=== PATIENT | female | born 1930 | race Caucasian/White ===

== ENCOUNTER 2016-12-11 17:10 | Emergency (ER) | payer OTHER, MEDICAID ==
[~2016-12-11] VITALS: Ht 160 cm; Wt 99.8 kg
[~2016-12-11 17:10] MED LIST: ALBU2.5V7 INH; ALLO300T47 PO; CALC-939 PO; CYM30 PO; GABA-531 PO; IBUP-1480 PO; INSU100V11 SQ; INSU200I SQ; LEVO88TA5 PO; LIP40 PO; MONT10TA22 PO; NYSSUS PO; OMEG-82 PO; OXYB10TA4 PO; POLY17PO4 PO; PRO40 PO; TEMA15CA51 PO; VIT1TABL67 PO; [UNRECOGNIZED DRUG - CODE] PO
[2016-12-11 17:18] VITALS: BP_SYST 126
[2016-12-11] MEDS ORDERED: ASPIRIN 81 MG TAB.CHEW PO ONE (17:45)
[2016-12-11] MEDS ORDERED: CLOPIDOGREL BISULFATE 75 MG TABLET PO ONE (17:45)
[2016-12-11 18:24] LABS: BASOPHILS # (AUTO) 0.1 K/uL (0.0-0.2); EOSINOPHILS # (AUTO) 0.2 K/uL (0.0-0.4); HEMATOCRIT 40.8 % (36-48); HEMOGLOBIN 13.5 g/dL (12.0-16.0); LYMPHOCYTES # (AUTO) 2.5 K/uL (1.0-5.5); LYMPHOCYTES % (AUTO) 32.8 % (20.5-51.5); MEAN CORPUSCULAR HEMOGLOBIN 29 pg (27-31); MEAN CORPUSCULAR HGB CONC 33 % (32-36); MEAN CORPUSCULAR VOLUME 88 fL (79.0-98.0); MONOCYTES # (AUTO) 0.5 K/uL (0.0-1.0); MONOCYTES % (AUTO) 6.4 % (1.7-9.3); NEUTROPHILS # (AUTO) 4.3 K/uL (1.8-7.7); NEUTROPHILS % (AUTO) 56.8 % (40.0-70.0); PLATELET COUNT (AUTO) 224 K/uL (130-430); RED BLOOD CELL COUNT(AUTO) 4.64 MIL/uL (4.2-6.2); RED CELL DISTRIBUTION WIDTH 13.6 % (9.0-15.0); WHITE BLOOD COUNT (AUTO) 7.6 K/uL (4.8-10.8)
[2016-12-11 18:32] LABS: ANION GAP 5 (5-15); CHLORIDE 104 mmol/L (98-107); CREATININE 1.31 mg/dL (0.55-1.30); GLUCOSE 187 mg/dL (70-99); POTASSIUM 4.6 mmol/L (3.5-5.1); SODIUM SERUM 138 mmol/L (136-145); UREA NITROGEN, BLOOD 26 mg/dL (8-21)
[2016-12-11 18:37] LABS: ALANINE AMINOTRANSFERASE 25 U/L (12-78); ASPARTATE AMINOTRANSFERASE 30 U/L (10-37); CREATINE KINASE, TOTAL 68 U/L (26-192); TOTAL BILIRUBIN 0.3 mg/dL (0.0-1.0)
[2016-12-11] MEDS ORDERED: GABA-529 PO (19:12)
[2016-12-11] MEDS ORDERED: POLY17PO4 PO (19:12)
[2016-12-11] MEDS ORDERED: PRO40 PO (19:12)
[2016-12-11] MEDS ORDERED: SSREG SUBCUT (19:12)
[2016-12-11] MEDS ORDERED: INSU100V11 SQ (19:12)
[2016-12-11] MEDS ORDERED: LACT10SO66 GT (19:12)
[2016-12-11] MEDS ORDERED: IBUP-1480 PO (19:12)
[2016-12-11] MEDS ORDERED: ACET325T53 PO (19:12)
[2016-12-11] MEDS ORDERED: DULR10 RC (19:12)
[2016-12-11] MEDS ORDERED: CRAN450C PO (19:12)
[2016-12-11] MEDS ORDERED: VITD2000 PO (19:12)
[2016-12-11] MEDS ORDERED: MAGN400O4 PO (19:12)
[2016-12-11] MEDS ORDERED: OXYB5TAB11 PO (19:12)
[2016-12-11] MEDS ORDERED: OXYC-130 PO (19:12)
[2016-12-11] MEDS ORDERED: DOCU250C PO (19:12)
[2016-12-11] MEDS ORDERED: ALLO100T PO (19:12)
[2016-12-11] MEDS ORDERED: TEMA15CA51 PO (19:12)
[2016-12-11] MEDS ORDERED: MULT PO (19:12)
[2016-12-11] MEDS ORDERED: NA P118E RC (19:12)
[2016-12-11 20:12] LABS: BILIRUBIN,URINE NEGATIVE (NEGATIVE); BLOOD, URINE NEGATIVE (NEGATIVE); CLARITY/URINE CLEAR (CLEAR); COLOR,URINE YELLOW (YELLOW); GLUCOSE,URINE 2+ (NEGATIVE); KETONES,URINE NEGATIVE (NEGATIVE); LEUKOCYTE ESTERASE ,URINE NEGATIVE (NEGATIVE); NITRITE, URINE NEGATIVE (NEGATIVE); PH,URINE 5.5 (5.0-8.0); PROTEIN URINE NEGATIVE (NEGATIVE); UROBILINOGEN,URINE 0.2 (0.2-1.0)
[2016-12-11 21:57] VITALS: BP_SYST 118
== END 2016-12-11 21:57 | disposition home or self-care (01) ==
LOC: SED 17:10
DX: R07.89 Other chest pain (principal); I10 Essential (primary) hypertension; E11.29 Type 2 diabetes mellitus with other diabetic kidney complication; N28.9 Disorder of kidney and ureter, unspecified; I25.2 Old myocardial infarction; E78.00 Pure hypercholesterolemia, unspecified; M10.9 Gout, unspecified; Z79.4 Long term (current) use of insulin; Z88.5 Allergy status to narcotic agent; Z88.0 Allergy status to penicillin; Z88.8 Allergy status to other drugs, medicaments and biological substances; Z88.4 Allergy status to anesthetic agent; Z88.1 Allergy status to other antibiotic agents; Z91.011 Allergy to milk products
CPT/HCPCS: 36415; 71010; 80053; 81003; 82550-TC; 83880; 84484; 85025; 85379; 85610-TC; 85730-TC; 93005; 99285

== ENCOUNTER 2017-03-25 23:39 | Inpatient (IN) | payer OTHER, MEDICAID ==
[~2017-03-25] VITALS: Ht 157.5 cm; Wt 100.2 kg
[~2017-03-25 23:39] MED LIST changes: +ACET325T53 PO; +ALLO100T PO; +CRAN450C PO; +DOCU250C PO; +DULR10 RC; +GABA-529 PO; -GABA-531 PO; -INSU200I SQ; +LACT10SO66 GT; -LEVO88TA5 PO; +MAGN400O4 PO; +MULT PO; +NA P118E RC; -NYSSUS PO; -OXYB10TA4 PO; +OXYB5TAB11 PO; +OXYC-130 PO; +SSREG SUBCUT; -VIT1TABL67 PO; +VITD2000 PO; -[UNRECOGNIZED DRUG - CODE] PO
[2017-03-25 23:42] VITALS: BP_SYST 112
[2017-03-26] VITALS (11 sets, daily range): BP systolic 95–177
[2017-03-26] MEDS ORDERED: NITROGLYCERIN 0.4 MG TAB.SUBL SL ONE
[2017-03-26] MEDS ORDERED: NITROGLYCERIN 1 INCH (GM) OINT. TP ONE (00:15)
[2017-03-26] MEDS ORDERED: LEVO100T9 PO (00:35)
[2017-03-26] MEDS ORDERED: HYDR-4100 PO (00:35)
[2017-03-26] MEDS ORDERED: ALLO300T2 PO (00:35)
[2017-03-26 00:48] LABS: HEMATOCRIT 38.3 % (36-48); HEMOGLOBIN 12.6 g/dL (12.0-16.0); MEAN CORPUSCULAR HEMOGLOBIN 29 pg (27-31); MEAN CORPUSCULAR HGB CONC 33 % (32-36); MEAN CORPUSCULAR VOLUME 89 fL (79.0-98.0); RED BLOOD CELL COUNT(AUTO) 4.34 MIL/uL (4.2-6.2); RED CELL DISTRIBUTION WIDTH 13.8 % (9.0-15.0); WHITE BLOOD COUNT (AUTO) 10.7 K/uL (4.8-10.8)
[2017-03-26 00:56] LABS: ANION GAP 6 (5-15); CHLORIDE 107 mmol/L (98-107); CREATININE 1.38 mg/dL (0.55-1.30); GLUCOSE 165 mg/dL (70-99); POTASSIUM 4.7 mmol/L (3.5-5.1); SODIUM SERUM 138 mmol/L (136-145); UREA NITROGEN, BLOOD 32 mg/dL (8-21)
[2017-03-26 00:59] LABS: PROTHROMBIN TIME 10.4 SECS (9.5-12.5)
[2017-03-26 01:01] LABS: ALANINE AMINOTRANSFERASE 13 U/L (12-78); ALBUMIN 2.8 g/dL (3.4-4.8); ASPARTATE AMINOTRANSFERASE 23 U/L (10-37); TOTAL BILIRUBIN 0.3 mg/dL (0.0-1.0); TOTAL PROTEIN, SERUM 6.7 g/dL (6.4-8.3)
[2017-03-26 01:05] LABS: PLATELET COUNT (AUTO) 143 K/uL (130-430)
[2017-03-26 01:12] LABS: ATYPICAL LYMPHOCYTES % 0 % (0-0); BAND % (MANUAL) 2 % (0-6); EOSINOPHILS % (MANUAL) 8 % (0-7); LYMPHOCYTES % (MANUAL) 34 % (20-46); MONOCYTES % (MANUAL) 6 % (0-11)
[2017-03-26 01:13] LABS: BASOPHILS % (MANUAL) 0 % (0-2)
[2017-03-26] MEDS ORDERED: MORPHINE 2 MG/ML INJ. SYRINGE IVP ONE (01:45)
[2017-03-26] MEDS ORDERED: DIPHENHYDRAMINE INJ 50 MG/ML VIAL IVP ONE (01:45)
[2017-03-26 01:47] LABS: BILIRUBIN,URINE NEGATIVE (NEGATIVE); BLOOD, URINE NEGATIVE (NEGATIVE); CLARITY/URINE CLEAR (CLEAR); COLOR,URINE YELLOW (YELLOW); GLUCOSE,URINE NEGATIVE (NEGATIVE); KETONES,URINE NEGATIVE (NEGATIVE); LEUKOCYTE ESTERASE ,URINE NEGATIVE (NEGATIVE); NITRITE, URINE NEGATIVE (NEGATIVE); PH,URINE 5.5 (5.0-8.0); PROTEIN URINE NEGATIVE (NEGATIVE); UROBILINOGEN,URINE 0.2 (0.2-1.0)
[2017-03-26] MEDS ORDERED: MILK OF MAGNESIA 30 ML UDC PO PRN (03:45)
[2017-03-26] MEDS ORDERED: ACETAMINOPHEN 325 MG TABLET PO PRN (03:45)
[2017-03-26] MEDS ORDERED: NA PHOS,M-B/NA PHOS,DI-BA 118 ML (FLEET ENEMA) RC PRN (03:45)
[2017-03-26] MEDS: NITROGLYCERIN 1 INCH (GM) OINT. TP SCH ×3 (06:00→22:00)
[2017-03-26] MEDS: LEVOTHYROXINE SODIUM 0.1 MG TABLET PO SCH (06:27)
[2017-03-26] MEDS: INSULIN REGULAR, HUMAN 100 UNITS/ML, 10 ML VIAL (novoLIN R) SUBCUT PRN ×2 (06:39→11:51)
[2017-03-26] MEDS: PANTOPRAZOLE SODIUM 40 MG TAB PO SCH (09:27)
[2017-03-26] MEDS: ALLOPURINOL 300 MG TABLET (ZYLOPRIM) PO SCH (09:27)
[2017-03-26] MEDS: DOCUSATE SODIUM 250 MG CAPSULE PO SCH ×2 (09:27→20:55)
[2017-03-26] MEDS: CALCIUM CARBONATE/VITAMIN D3 1 TAB TABLET PO SCH (09:27)
[2017-03-26] MEDS: MONTELUKAST 10 MG TABLET PO SCH (09:27)
[2017-03-26] MEDS: GABAPENTIN 100 MG CAPSULE PO SCH ×3 (09:27→20:51)
[2017-03-26] MEDS: BISACODYL 10 MG/SUPPOSITORY RC SCH (09:28)
[2017-03-26] MEDS: HYDROcodone/ACETAMIN 10-325 MG TAB PO PRN (09:47)
[2017-03-26] MEDS: IBUPROFEN 800 MG TABLET PO PRN (11:48)
[2017-03-26] MEDS ORDERED: ONDANSETRON HCL 4 MG/2 ML VIAL IVP PRN ×2 (12:15→17:45)
[2017-03-26] MEDS ORDERED: DIATR MEGLU/DIATRIZ SOD 30 ML SOLUTION PO ONE (12:58)
[2017-03-26] MEDS: MORPHINE 2 MG/ML INJ. SYRINGE IVP PRN ×2 (13:22→20:31)
[2017-03-26] MEDS ORDERED: POLYMYXIN 500,000/BACIT.10,000 UNITS in NS IRR 1 L IR ONE (16:39)
[2017-03-26] MEDS ORDERED: LR 1,000 ML IV SCH (17:32)
[2017-03-26] MEDS ORDERED: MEPERIDINE HCL/PF 25 MG/ML DISP.SYRIN IVP PRN ×2 (17:45)
[2017-03-26] MEDS ORDERED: NACL 0.9% 1,000 ML IV SCH (20:15)
[2017-03-26] MEDS: OXYBUTYNIN CHLORIDE 5 MG TABLET PO SCH (20:50)
[2017-03-26] MEDS: ATORVASTATIN 20 MG TABLET PO SCH (20:53)
[2017-03-26] MEDS ORDERED: DIGOXIN 0.5 MG/2 ML AMP IVP ONE (22:30)
[2017-03-27] VITALS (17 sets, daily range): BP systolic 91–177
[2017-03-27 01:11] LABS: ANION GAP 6 (5-15); CALCIUM 8.6 mg/dL (8.4-11.0); CHLORIDE 107 mmol/L (98-107); CREATININE 1.29 mg/dL (0.55-1.30); GLUCOSE 205 mg/dL (70-99); POTASSIUM 5.1 mmol/L (3.5-5.1); SODIUM SERUM 137 mmol/L (136-145); UREA NITROGEN, BLOOD 33 mg/dL (8-21)
[2017-03-27 01:12] LABS: BASOPHILS # (AUTO) 0.1 K/uL (0.0-0.2); EOSINOPHILS # (AUTO) 0.2 K/uL (0.0-0.4); EOSINOPHILS % (AUTO) 1.9 % (0.0-4.0); HEMATOCRIT 35.6 % (36-48); HEMOGLOBIN 11.9 g/dL (12.0-16.0); LYMPHOCYTES # (AUTO) 1.7 K/uL (1.0-5.5); LYMPHOCYTES % (AUTO) 15.4 % (20.5-51.5); MEAN CORPUSCULAR HEMOGLOBIN 30 pg (27-31); MEAN CORPUSCULAR HGB CONC 34 % (32-36); MEAN CORPUSCULAR VOLUME 90 fL (79.0-98.0); MONOCYTES # (AUTO) 0.5 K/uL (0.0-1.0); MONOCYTES % (AUTO) 4.4 % (1.7-9.3); NEUTROPHILS # (AUTO) 8.3 K/uL (1.8-7.7); NEUTROPHILS % (AUTO) 77.3 % (40.0-70.0); PLATELET COUNT (AUTO) 117 K/uL (130-430); RED BLOOD CELL COUNT(AUTO) 3.97 MIL/uL (4.2-6.2); WHITE BLOOD COUNT (AUTO) 10.8 K/uL (4.8-10.8)
[2017-03-27 01:16] LABS: CREATINE KINASE, TOTAL 152 U/L (26-192)
[2017-03-27] MEDS: LEVOTHYROXINE SODIUM 0.1 MG TABLET PO SCH (06:04)
[2017-03-27] MEDS: INSULIN REGULAR, HUMAN 100 UNITS/ML, 10 ML VIAL (novoLIN R) SUBCUT PRN ×2 (06:13→21:00)
[2017-03-27] MEDS: NITROGLYCERIN 1 INCH (GM) OINT. TP SCH ×3 (06:25→21:11)
[2017-03-27] MEDS: MORPHINE 2 MG/ML INJ. SYRINGE IVP PRN ×2 (06:32→10:40)
[2017-03-27] MEDS: PANTOPRAZOLE SODIUM 40 MG TAB PO SCH (08:15)
[2017-03-27] MEDS: MONTELUKAST 10 MG TABLET PO SCH (08:15)
[2017-03-27] MEDS: ALLOPURINOL 300 MG TABLET (ZYLOPRIM) PO SCH (08:15)
[2017-03-27] MEDS: DOCUSATE SODIUM 250 MG CAPSULE PO SCH ×2 (08:15→20:47)
[2017-03-27] MEDS: GABAPENTIN 100 MG CAPSULE PO SCH ×3 (08:16→20:48)
[2017-03-27] MEDS: CALCIUM CARBONATE/VITAMIN D3 1 TAB TABLET PO SCH (08:31)
[2017-03-27] MEDS: BISACODYL 10 MG/SUPPOSITORY RC SCH (10:28)
[2017-03-27] MEDS: POLYETHYLENE GLYCOL 3350, 17 GM/ POWD.PACK PO PRN (14:09)
[2017-03-27] MEDS ORDERED: NOREPINEPHRINE 4 MG/4 ML VIAL IV ONE (16:45)
[2017-03-27] MEDS: HYDROcodone/ACETAMIN 10-325 MG TAB PO PRN ×2 (17:14→17:34)
[2017-03-27] MEDS: OXYBUTYNIN CHLORIDE 5 MG TABLET PO SCH (20:48)
[2017-03-27] MEDS: ATORVASTATIN 20 MG TABLET PO SCH (20:48)
[2017-03-28 04:00] VITALS: BP_SYST 144
[2017-03-28] MEDS: NITROGLYCERIN 1 INCH (GM) OINT. TP SCH ×3 (05:15→22:42)
[2017-03-28] MEDS: MORPHINE 2 MG/ML INJ. SYRINGE IVP PRN ×3 (05:30→22:22)
[2017-03-28 05:39] VITALS: BP_SYST 153
[2017-03-28 06:34] LABS: ANION GAP 5 (5-15); CALCIUM 8.5 mg/dL (8.4-11.0); CHLORIDE 108 mmol/L (98-107); CREATININE 1.08 mg/dL (0.55-1.30); GLUCOSE 206 mg/dL (70-99); POTASSIUM 4.6 mmol/L (3.5-5.1); SODIUM SERUM 139 mmol/L (136-145); UREA NITROGEN, BLOOD 21 mg/dL (8-21)
[2017-03-28] MEDS: LEVOTHYROXINE SODIUM 0.1 MG TABLET PO SCH (06:36)
[2017-03-28] MEDS: INSULIN REGULAR, HUMAN 100 UNITS/ML, 10 ML VIAL (novoLIN R) SUBCUT PRN ×3 (06:41→22:34)
[2017-03-28 06:57] LABS: BASOPHILS % (AUTO) 0.3 % (0.0-2.0); EOSINOPHILS # (AUTO) 0.3 K/uL (0.0-0.4); EOSINOPHILS % (AUTO) 4.1 % (0.0-4.0); HEMATOCRIT 34.8 % (36-48); HEMOGLOBIN 11.4 g/dL (12.0-16.0); LYMPHOCYTES # (AUTO) 1.2 K/uL (1.0-5.5); LYMPHOCYTES % (AUTO) 14.2 % (20.5-51.5); MEAN CORPUSCULAR HEMOGLOBIN 30 pg (27-31); MEAN CORPUSCULAR HGB CONC 33 % (32-36); MEAN CORPUSCULAR VOLUME 90 fL (79.0-98.0); MONOCYTES # (AUTO) 0.5 K/uL (0.0-1.0); MONOCYTES % (AUTO) 6.1 % (1.7-9.3); NEUTROPHILS # (AUTO) 6.1 K/uL (1.8-7.7); NEUTROPHILS % (AUTO) 75.3 % (40.0-70.0); PLATELET COUNT (AUTO) 169 K/uL (130-430); RED BLOOD CELL COUNT(AUTO) 3.85 MIL/uL (4.2-6.2); WHITE BLOOD COUNT (AUTO) 8.1 K/uL (4.8-10.8)
[2017-03-28 08:00] VITALS: BP_SYST 126
[2017-03-28] MEDS: GABAPENTIN 100 MG CAPSULE PO SCH ×3 (09:59→22:41)
[2017-03-28] MEDS: ALLOPURINOL 300 MG TABLET (ZYLOPRIM) PO SCH (09:59)
[2017-03-28] MEDS: MONTELUKAST 10 MG TABLET PO SCH (10:00)
[2017-03-28] MEDS: DOCUSATE SODIUM 250 MG CAPSULE PO SCH ×2 (10:00→22:40)
[2017-03-28] MEDS: METOPROLOL SUCCINATE 50 MG TAB.SR.24H (TOPROL XL) PO SCH (10:00)
[2017-03-28] MEDS: CALCIUM CARBONATE/VITAMIN D3 1 TAB TABLET PO SCH (10:00)
[2017-03-28] MEDS: PANTOPRAZOLE SODIUM 40 MG TAB PO SCH (10:00)
[2017-03-28] MEDS: BISACODYL 10 MG/SUPPOSITORY RC SCH (10:01)
[2017-03-28 12:00] VITALS: BP_SYST 108
[2017-03-28] MEDS: HYDROcodone/ACETAMIN 10-325 MG TAB PO PRN (12:10)
[2017-03-28 16:19] VITALS: BP_SYST 106
[2017-03-28] MEDS ORDERED: MIDAZOLAM HCL 5 MG/5 ML VIAL IVP ONE (17:01)
[2017-03-28] MEDS ORDERED: LIDOCAINE/EPI 1% 1:100000 20 ML VIAL INJ ONE (17:01)
[2017-03-28] MEDS ORDERED: NS 100 ML BAG IV ONE (17:01)
[2017-03-28] MEDS ORDERED: MEPERIDINE HCL/PF 100 MG/ML AMP IM ONE (17:01)
[2017-03-28] MEDS ORDERED: CEFAZOLIN 2 GM IVPB PREMIX 50 ML IV ONE (17:01)
[2017-03-28] MEDS ORDERED: NS 500 ML BAG IV ONE (17:01)
[2017-03-28] MEDS ORDERED: PROPOFOL 200MG/ 20ML VIAL (DIPRIVAN) IV ONE (17:01)
[2017-03-28 20:15] VITALS: BP_SYST 148
[2017-03-28] MEDS: ATORVASTATIN 20 MG TABLET PO SCH (22:40)
[2017-03-28] MEDS: OXYBUTYNIN CHLORIDE 5 MG TABLET PO SCH (22:44)
[2017-03-29] VITALS (8 sets, daily range): BP systolic 114–155
[2017-03-29] MEDS: TEMAZEPAM 15 MG CAPSULE PO PRN ×2 (00:01→21:27)
[2017-03-29] MEDS: LEVOTHYROXINE SODIUM 0.1 MG TABLET PO SCH (06:51)
[2017-03-29] MEDS: NITROGLYCERIN 1 INCH (GM) OINT. TP SCH ×3 (06:54→21:23)
[2017-03-29] MEDS: INSULIN REGULAR, HUMAN 100 UNITS/ML, 10 ML VIAL (novoLIN R) SUBCUT PRN ×3 (06:55→21:21)
[2017-03-29] MEDS: BISACODYL 10 MG/SUPPOSITORY RC SCH (09:00)
[2017-03-29] MEDS: GABAPENTIN 100 MG CAPSULE PO SCH ×3 (09:06→20:09)
[2017-03-29] MEDS: CALCIUM CARBONATE/VITAMIN D3 1 TAB TABLET PO SCH (09:07)
[2017-03-29] MEDS: DOCUSATE SODIUM 250 MG CAPSULE PO SCH ×2 (09:07→20:08)
[2017-03-29] MEDS: MONTELUKAST 10 MG TABLET PO SCH (09:07)
[2017-03-29] MEDS: METOPROLOL SUCCINATE 50 MG TAB.SR.24H (TOPROL XL) PO SCH (09:07)
[2017-03-29] MEDS: ALLOPURINOL 300 MG TABLET (ZYLOPRIM) PO SCH (09:07)
[2017-03-29] MEDS: PANTOPRAZOLE SODIUM 40 MG TAB PO SCH (09:08)
[2017-03-29] MEDS: ATORVASTATIN 20 MG TABLET PO SCH (20:08)
[2017-03-29] MEDS: OXYBUTYNIN CHLORIDE 5 MG TABLET PO SCH (20:09)
[2017-03-29] MEDS: HYDROcodone/ACETAMIN 10-325 MG TAB PO PRN (20:10)
[2017-03-30 00:09] VITALS: BP_SYST 132
[2017-03-30 04:26] VITALS: BP_SYST 134
[2017-03-30] MEDS: LEVOTHYROXINE SODIUM 0.1 MG TABLET PO SCH (05:56)
[2017-03-30] MEDS: NITROGLYCERIN 1 INCH (GM) OINT. TP SCH ×3 (05:57→22:06)
[2017-03-30] MEDS: INSULIN REGULAR, HUMAN 100 UNITS/ML, 10 ML VIAL (novoLIN R) SUBCUT PRN ×4 (06:01→20:40)
[2017-03-30 08:15] VITALS: BP_SYST 138
[2017-03-30] MEDS: PANTOPRAZOLE SODIUM 40 MG TAB PO SCH (08:34)
[2017-03-30] MEDS: GABAPENTIN 100 MG CAPSULE PO SCH ×3 (08:34→20:36)
[2017-03-30] MEDS: DOCUSATE SODIUM 250 MG CAPSULE PO SCH ×2 (08:34→20:36)
[2017-03-30] MEDS: CALCIUM CARBONATE/VITAMIN D3 1 TAB TABLET PO SCH (08:35)
[2017-03-30] MEDS: ALLOPURINOL 300 MG TABLET (ZYLOPRIM) PO SCH (08:35)
[2017-03-30] MEDS: BISACODYL 10 MG/SUPPOSITORY RC SCH (08:36)
[2017-03-30] MEDS: MONTELUKAST 10 MG TABLET PO SCH (08:36)
[2017-03-30] MEDS: METOPROLOL SUCCINATE 50 MG TAB.SR.24H (TOPROL XL) PO SCH (08:36)
[2017-03-30] MEDS: HYDROcodone/ACETAMIN 10-325 MG TAB PO PRN ×2 (09:41→20:51)
[2017-03-30 12:00] VITALS: BP_SYST 129
[2017-03-30 17:19] VITALS: BP_SYST 141
[2017-03-30] MEDS: MORPHINE 2 MG/ML INJ. SYRINGE IVP PRN (17:42)
[2017-03-30 19:50] VITALS: BP_SYST 107
[2017-03-30] MEDS: OXYBUTYNIN CHLORIDE 5 MG TABLET PO SCH (20:36)
[2017-03-30] MEDS: ATORVASTATIN 20 MG TABLET PO SCH (20:37)
[2017-03-31 04:00] VITALS: BP_SYST 153
[2017-03-31] MEDS: LEVOTHYROXINE SODIUM 0.1 MG TABLET PO SCH (06:54)
[2017-03-31] MEDS: NITROGLYCERIN 1 INCH (GM) OINT. TP SCH ×3 (06:55→21:31)
[2017-03-31 08:14] VITALS: BP_SYST 134
[2017-03-31] MEDS: BISACODYL 10 MG/SUPPOSITORY RC SCH (09:00)
[2017-03-31] MEDS: DOCUSATE SODIUM 250 MG CAPSULE PO SCH ×2 (10:08→21:19)
[2017-03-31] MEDS: GABAPENTIN 100 MG CAPSULE PO SCH ×3 (10:08→21:19)
[2017-03-31] MEDS: PANTOPRAZOLE SODIUM 40 MG TAB PO SCH (10:08)
[2017-03-31] MEDS: MONTELUKAST 10 MG TABLET PO SCH (10:14)
[2017-03-31] MEDS: HYDROcodone/ACETAMIN 10-325 MG TAB PO PRN (10:14)
[2017-03-31] MEDS: CALCIUM CARBONATE/VITAMIN D3 1 TAB TABLET PO SCH (10:14)
[2017-03-31] MEDS: ALLOPURINOL 300 MG TABLET (ZYLOPRIM) PO SCH (10:14)
[2017-03-31] MEDS: POLYETHYLENE GLYCOL 3350, 17 GM/ POWD.PACK PO PRN (10:15)
[2017-03-31] MEDS: METOPROLOL SUCCINATE 50 MG TAB.SR.24H (TOPROL XL) PO SCH (10:15)
[2017-03-31 12:00] VITALS: BP_SYST 148
[2017-03-31] MEDS: INSULIN REGULAR, HUMAN 100 UNITS/ML, 10 ML VIAL (novoLIN R) SUBCUT PRN ×3 (12:21→21:24)
[2017-03-31] MEDS: IBUPROFEN 800 MG TABLET PO PRN (15:26)
[2017-03-31 16:12] VITALS: BP_SYST 97
[2017-03-31 20:00] VITALS: BP_SYST 115
[2017-03-31] MEDS: OXYBUTYNIN CHLORIDE 5 MG TABLET PO SCH (21:19)
[2017-03-31] MEDS: ATORVASTATIN 20 MG TABLET PO SCH (21:19)
[2017-03-31 23:49] VITALS: BP_SYST 116
[2017-04-01] MEDS: INSULIN REGULAR, HUMAN 100 UNITS/ML, 10 ML VIAL (novoLIN R) SUBCUT PRN ×2 (05:26→11:51)
[2017-04-01] MEDS: HYDROcodone/ACETAMIN 10-325 MG TAB PO PRN ×2 (05:31→14:35)
[2017-04-01] MEDS: NITROGLYCERIN 1 INCH (GM) OINT. TP SCH ×2 (06:00→14:34)
[2017-04-01] MEDS: LEVOTHYROXINE SODIUM 0.1 MG TABLET PO SCH (06:02)
[2017-04-01 06:10] VITALS: BP_SYST 122
[2017-04-01 08:20] VITALS: BP_SYST 128
[2017-04-01] MEDS: BISACODYL 10 MG/SUPPOSITORY RC SCH (09:00)
[2017-04-01] MEDS: IBUPROFEN 800 MG TABLET PO PRN (09:45)
[2017-04-01] MEDS: DOCUSATE SODIUM 250 MG CAPSULE PO SCH (09:46)
[2017-04-01] MEDS: MONTELUKAST 10 MG TABLET PO SCH (09:46)
[2017-04-01] MEDS: METOPROLOL SUCCINATE 50 MG TAB.SR.24H (TOPROL XL) PO SCH (09:46)
[2017-04-01] MEDS: GABAPENTIN 100 MG CAPSULE PO SCH ×2 (09:46→14:33)
[2017-04-01] MEDS: ALLOPURINOL 300 MG TABLET (ZYLOPRIM) PO SCH (09:46)
[2017-04-01] MEDS: CALCIUM CARBONATE/VITAMIN D3 1 TAB TABLET PO SCH (09:46)
[2017-04-01] MEDS: PANTOPRAZOLE SODIUM 40 MG TAB PO SCH (09:46)
[2017-04-01 12:07] VITALS: BP_SYST 91
[2017-04-01 14:53] VITALS: BP_SYST 115
== END 2017-04-01 15:20 | DRG 242 ==
LOC: SED 23:39 → STU 03-26 02:33 → SIC 03-26 18:37 → STU 03-27 16:30 → SMU 03-29 13:04
PROVIDERS: ADMIT Internal Medicine; ATTEND Internal Medicine
PROC: 02H63JZ Insertion of Pacemaker Lead into Right Atrium, Percutaneous Approach (ICD-10-PCS; 2017-03-26)
PROC: 02HK3JZ Insertion of Pacemaker Lead into Right Ventricle, Percutaneous Approach (ICD-10-PCS; 2017-03-26)
PROC: B2141ZZ Fluoroscopy of Right Heart using Low Osmolar Contrast (ICD-10-PCS; 2017-03-26)
PROC: 0JH606Z Insertion of Pacemaker, Dual Chamber into Chest Subcutaneous Tissue and Fascia, Open Approach (ICD-10-PCS; principal; 2017-03-26 17:00)
DX: I49.5 Sick sinus syndrome (principal); E43 Unspecified severe protein-calorie malnutrition; Z68.41 Body mass index [BMI] 40.0-44.9, adult; I13.0 Hypertensive heart and chronic kidney disease with heart failure and stage 1 through stage 4 chronic kidney disease, or unspecified chronic kidney disease; I47.1 Supraventricular tachycardia; I48.92 Unspecified atrial flutter; E78.00 Pure hypercholesterolemia, unspecified; J44.9 Chronic obstructive pulmonary disease, unspecified; E78.5 Hyperlipidemia, unspecified; G89.29 Other chronic pain; M54.5 Low back pain; E03.9 Hypothyroidism, unspecified; K21.9 Gastro-esophageal reflux disease without esophagitis; E11.22 Type 2 diabetes mellitus with diabetic chronic kidney disease; I25.10 Atherosclerotic heart disease of native coronary artery without angina pectoris; N18.9 Chronic kidney disease, unspecified; E66.9 Obesity, unspecified; C50.912 Malignant neoplasm of unspecified site of left female breast; K59.09 Other constipation; M19.90 Unspecified osteoarthritis, unspecified site; F51.04 Psychophysiologic insomnia; Z79.01 Long term (current) use of anticoagulants; M10.9 Gout, unspecified; Z88.8 Allergy status to other drugs, medicaments and biological substances; Z88.0 Allergy status to penicillin; Z88.1 Allergy status to other antibiotic agents; Z88.6 Allergy status to analgesic agent; Z88.2 Allergy status to sulfonamides; Z91.011 Allergy to milk products; Z91.018 Allergy to other foods; Z79.899 Other long term (current) drug therapy; I25.2 Old myocardial infarction; Z79.4 Long term (current) use of insulin; Z90.49 Acquired absence of other specified parts of digestive tract; Z90.12 Acquired absence of left breast and nipple; Z86.73 Personal history of transient ischemic attack (TIA), and cerebral infarction without residual deficits; Z74.01 Bed confinement status; Z17.1 Estrogen receptor negative status [ER-]
CPT/HCPCS: 36415; 71010; 76000; 80048; 80053; 81003; 82550-TC; 82962; 83880; 84484; 85007; 85025; 85027; 85610-TC; 85730-TC; 86300; 87081; 93005; 93306; 94010; 96374; 96375; 97110-GP; 97116-GP; 97530-GP; 99285; C1751; C1785; C1894; C1898; J0690; J1160; J1200; J1815; J2175; J2250; J2270; J2704; J7030; J7040; Q9964

== ENCOUNTER 2017-04-11 18:16 | Inpatient (IN) | payer OTHER, MEDICAID ==
[~2017-04-11] VITALS: Ht 157.5 cm; Wt 93.9 kg
[~2017-04-11 18:16] MED LIST changes: -ALBU2.5V7 INH; -ALLO100T PO; +ALLO300T2 PO; -ALLO300T47 PO; -CRAN450C PO; -CYM30 PO; +HYDR-4100 PO; -LACT10SO66 GT; +LEVO100T9 PO; -MULT PO; -OMEG-82 PO; -OXYC-130 PO; -SSREG SUBCUT; -VITD2000 PO
[2017-04-11 18:20] VITALS: BP_SYST 158
--- NOTE | 2017-04-11 18:20 | NUR ---
Pt bib ALS c/c chest pain left upper chest. Pt did receive NTG x1, along w/ ASA 162mg PO prior to arrival by EMS. Pt rates chest discomfort 6/10, placed in room 7.
[2017-04-11] MEDS ORDERED: ATOR40TA68 (18:30)
[2017-04-11 19:10] LABS: BASOPHILS # (AUTO) 0.1 K/uL (0.0-0.2); BASOPHILS % (AUTO) 0.7 % (0.0-2.0); EOSINOPHILS # (AUTO) 0.4 K/uL (0.0-0.4); HEMATOCRIT 34.9 % (36-48); HEMOGLOBIN 11.6 g/dL (12.0-16.0); LYMPHOCYTES % (AUTO) 23.5 % (20.5-51.5); MEAN CORPUSCULAR HEMOGLOBIN 30 pg (27-31); MEAN CORPUSCULAR HGB CONC 33 % (32-36); MEAN CORPUSCULAR VOLUME 89 fL (79.0-98.0); MONOCYTES # (AUTO) 0.8 K/uL (0.0-1.0); MONOCYTES % (AUTO) 9.6 % (1.7-9.3); NEUTROPHILS # (AUTO) 5.3 K/uL (1.8-7.7); NEUTROPHILS % (AUTO) 61.2 % (40.0-70.0); PLATELET COUNT (AUTO) 242 K/uL (130-430); RED BLOOD CELL COUNT(AUTO) 3.92 MIL/uL (4.2-6.2); RED CELL DISTRIBUTION WIDTH 14.4 % (9.0-15.0); WHITE BLOOD COUNT (AUTO) 8.6 K/uL (4.8-10.8)
[2017-04-11 19:32] LABS: ANION GAP 6 (5-15); CALCIUM 8.4 mg/dL (8.4-11.0); CHLORIDE 105 mmol/L (98-107); CREATININE 1.45 mg/dL (0.55-1.30); GLUCOSE 269 mg/dL (70-99); POTASSIUM 4.4 mmol/L (3.5-5.1); SODIUM SERUM 137 mmol/L (136-145); UREA NITROGEN, BLOOD 29 mg/dL (8-21)
--- NOTE | 2017-04-11 19:46 | NUR ---
Patient moved to bed 4
--- NOTE | 2017-04-11 19:47 | NUR ---
Dr. De La Torre at bedside.
[2017-04-11] MEDS ORDERED: MORPHINE 2 MG/ML INJ. SYRINGE IVP ONE (22:00)
--- NOTE | 2017-04-11 22:10 | NUR ---
Scanner Error. Name, , allergies and medication verified prior to administration.
--- NOTE | 2017-04-11 22:21 | NUR ---
Medication reconciliation completed with information provided by Son. Any prior medication reconciliation on file was reviewed and corrected.
[2017-04-11] MEDS ORDERED: MORPHINE 4 MG/ML INJ. SYRINGE IVP ONE (22:30)
--- NOTE | 2017-04-11 22:34 | NUR ---
Scanner Error. Name, , Medication and Allergies verified before adminstration.
--- NOTE | 2017-04-11 22:50 | NUR ---
Patient reports pain 0/10 15 minutes after administration of Morphine. No adverse reactions noted. Will continue to monitor.
--- NOTE | 2017-04-11 23:29 | NUR ---
ADMISSION NOTE Received patient from ER via gurney. Patient admitted with diagnosis of Chest Pain. Patient oriented to hospital routine, call light, toileting and safety-patient verbalized understanding.
--- NOTE | 2017-04-11 23:29 | NUR ---
Patient will be admitted to care of Dr. Irwin. Admitted to Telemetry unit. Will go to room 130B . Belongings list completed. Summary report printed. Report will be given at bedside.
[2017-04-11 23:30] VITALS: BP_SYST 118
[2017-04-11 23:37] VITALS: BP_SYST 118
[2017-04-11] MEDS ORDERED: POLYETHYLENE GLYCOL 3350, 17 GM/ POWD.PACK PO PRN (23:45)
[2017-04-11] MEDS ORDERED: NA PHOS,M-B/NA PHOS,DI-BA 118 ML (FLEET ENEMA) RC PRN (23:45)
[2017-04-11] MEDS ORDERED: IBUPROFEN 800 MG TABLET PO PRN (23:45)
[2017-04-11] MEDS ORDERED: ACETAMINOPHEN 325 MG TABLET PO PRN (23:45)
[2017-04-11] MEDS ORDERED: MILK OF MAGNESIA 30 ML UDC PO PRN (23:45)
--- NOTE | 2017-04-11 23:50 | NUR ---
Note prasanth in ED - 04/12/17 at 0119 by [email or web address] Patient reports pain 0/10 15 minutes after administration of Morphine. No adverse reactions noted. Will continue to monitor.
[2017-04-12] MEDS ORDERED: NITROGLYCERIN 0.4 MG TAB.SUBL SL PRN
--- NOTE | 2017-04-12 | NUR ---
INITIAL NOTE: Received pt from ED. Pt AAOX3. VSS. No c/o chest pain or shortness of breath at this time. IVL on R. FA clear and patent. H/O L. breast mastectomy, scar noted on L. breast. 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 Left arm limb precaution in place. Pt oriented to room/call light use. Safety measures in place. Bed on low position and bed alarm on. Instructed pt to call for assistance as needed. pt verbalized understanding. To monitor.
[2017-04-12] MEDS: TEMAZEPAM 15 MG CAPSULE PO PRN (00:42)
--- NOTE | 2017-04-12 00:45 | NUR ---
RN Rounds: Pt awake. VSS. No c/o SOB or chest pain at this time. Medicated with sleeping pill Restoril per pt request. Call light within easy reach. To monitor.
--- NOTE | 2017-04-12 02:00 | NUR ---
Pt asleep. No distress noted. To monitor.
[2017-04-12 04:05] VITALS: BP_SYST 108
--- NOTE | 2017-04-12 04:05 | NUR ---
RN Rounds: Pt sleeping comfortably. VSS. No acute distress noted. Call light remains within reach. Safety measures in place. To monitor.
[2017-04-12] MEDS: LEVOTHYROXINE SODIUM 0.1 MG TABLET PO SCH (06:46)
[2017-04-12] MEDS: INSULIN REGULAR, HUMAN 100 UNITS/ML, 10 ML VIAL (novoLIN R) SUBCUT PRN ×4 (06:46→20:51)
--- NOTE | 2017-04-12 07:00 | NUR ---
PAIN: PT c/o severe bladder pain 8/10 worse during urination. Paged Dr. Irwin. Awaiting callback.
--- NOTE | 2017-04-12 07:18 | NUR ---
CALLBACK: Dr. Irwin called back orders rec'd for UA, Urine culture and pyridium. Endorsed to am nurse.
[2017-04-12 07:34] LABS: ANION GAP 3 (5-15); CALCIUM 8.6 mg/dL (8.4-11.0); CHLORIDE 105 mmol/L (98-107); CREATININE 1.35 mg/dL (0.55-1.30); GLUCOSE 201 mg/dL (70-99); SODIUM SERUM 139 mmol/L (136-145); UREA NITROGEN, BLOOD 28 mg/dL (8-21)
[2017-04-12 07:40] LABS: BASOPHILS % (AUTO) 0.6 % (0.0-2.0); EOSINOPHILS # (AUTO) 0.5 K/uL (0.0-0.4); EOSINOPHILS % (AUTO) 6.7 % (0.0-4.0); HEMATOCRIT 36.7 % (36-48); HEMOGLOBIN 12.2 g/dL (12.0-16.0); LYMPHOCYTES % (AUTO) 28.7 % (20.5-51.5); MEAN CORPUSCULAR HEMOGLOBIN 30 pg (27-31); MEAN CORPUSCULAR HGB CONC 33 % (32-36); MEAN CORPUSCULAR VOLUME 91 fL (79.0-98.0); MONOCYTES # (AUTO) 0.6 K/uL (0.0-1.0); MONOCYTES % (AUTO) 8.9 % (1.7-9.3); NEUTROPHILS # (AUTO) 3.9 K/uL (1.8-7.7); NEUTROPHILS % (AUTO) 55.1 % (40.0-70.0); PLATELET COUNT (AUTO) 234 K/uL (130-430); RED BLOOD CELL COUNT(AUTO) 4.03 MIL/uL (4.2-6.2); RED CELL DISTRIBUTION WIDTH 14.3 % (9.0-15.0)
--- NOTE | 2017-04-12 08:00 | NUR ---
RN OPENING NOTE PATIENT LYING ON BED ALERT ORIENTED X4. PATIENT HAS DISCOMFORT IN HER BLADDER AREA, WILL BE GIVEN HER PYRIDIUM. PATIENT VITAL SIGNS ARE STABLE. WAS ASSESSED WILL BE GIVEN THE MEDICATION AT 0900
[2017-04-12] MEDS: CALCIUM CARBONATE/VITAMIN D3 1 TAB TABLET PO SCH (09:09)
[2017-04-12] MEDS: ALLOPURINOL 300 MG TABLET (ZYLOPRIM) PO SCH (09:09)
[2017-04-12] MEDS: PANTOPRAZOLE SODIUM 40 MG TAB PO SCH (09:09)
[2017-04-12] MEDS: DOCUSATE SODIUM 250 MG CAPSULE PO SCH ×2 (09:10→20:46)
[2017-04-12] MEDS: MONTELUKAST 10 MG TABLET PO SCH (09:10)
[2017-04-12] MEDS: GABAPENTIN 100 MG CAPSULE PO SCH ×3 (09:10→20:46)
[2017-04-12] MEDS: PHENAZOPYRIDINE HCL 100 MG TABLET PO SCH ×2 (09:10→20:46)
[2017-04-12] MEDS: BISACODYL 10 MG/SUPPOSITORY RC SCH (09:10)
--- NOTE | 2017-04-12 10:44 | NUR ---
Nutrition Update Misael Scale 18 noted. Pt admitted for chest pain. Diet: [facility] BMI: 37.9 kg/m2 RD to follow per nutrition care standards.
--- NOTE | 2017-04-12 12:00 | NUR ---
RN ROUNDS PATIENT LYING ON BED, WAS GIVEN THE BED ALVARADO TO VOID URINE, PATIENT BLOOD SUGAR WAS MEASURED. WILL BE COVERED WITH INSULIN WILL FOLLOW UP
[2017-04-12 12:07] VITALS: BP_SYST 144
[2017-04-12 16:38] VITALS: BP_SYST 140
--- NOTE | 2017-04-12 17:00 | NUR ---
RN NOTE PATIENT LYING ON BED, ALERT ORIENTED DENIES PAIN, PATIENT BLOOD SUGAR WAS MEASURED TO BE 234 MG/ DL, PATIENT WILL BE COVERED WITH INSULIN WILL FOLLOW UP
--- NOTE | 2017-04-12 18:30 | NUR ---
RN CLOSING NOTES PATIENT LYING ON BED ALERT ORIENTED. FAMILY MEMBERS BY THE BED SIDE, PATIENT DENIES PAIN OR DISCOMFORT, WAS SERVED DINNER WILL ENDORSE AND SIGN OFF TO NEXT SHIFT
--- NOTE | 2017-04-12 19:33 | NUR ---
PM Shift Assessment Received patient sitting up in bed, AAO x4, no acute distress noted. No complain of pain at this time. Patient verbally able to make needs known and encouraged to do so. Safety education provided and patient verbalized understanding. Call light is within reach, all fall and safety precautions in place, will continue to monitor for change in patient status.
[2017-04-12 20:00] VITALS: BP_SYST 147
[2017-04-12] MEDS: OXYBUTYNIN CHLORIDE 5 MG TABLET PO SCH (20:46)
[2017-04-12 20:57] LABS: BILIRUBIN,URINE NEGATIVE (NEGATIVE); BLOOD, URINE 1+ (NEGATIVE); CLARITY/URINE SL CLOUDY (CLEAR); COLOR,URINE YELLOW (YELLOW); GLUCOSE,URINE NEGATIVE (NEGATIVE); KETONES,URINE NEGATIVE (NEGATIVE); LEUKOCYTE ESTERASE ,URINE 3+ (NEGATIVE); NITRITE, URINE POSITIVE (NEGATIVE); PROTEIN URINE TRACE (NEGATIVE); UROBILINOGEN,URINE 0.2 (0.2-1.0)
[2017-04-12] MEDS ORDERED: ATORVASTATIN 20 MG TABLET PO SCH ×2 (21:00)
[2017-04-12 21:35] LABS: BACTERIA,URINE MANY /HPF (None Seen); WBC,URINE >100 /HPF (0-3)
[2017-04-12 21:36] LABS: MUCUS,URINE None Seen /LPF (None Seen)
[2017-04-12] MEDS ORDERED: ATORVASTATIN 20 MG TABLET PO ONE (21:45)
--- NOTE | 2017-04-12 22:31 | NUR ---
RN Rounds Patient is resting quietly in bed, no acute distress noted. Blood sugar was assessed and insulin provided per sliding scale. All scheduled medications administered earlier as ordered per MD. Patient was repositioned and made comfortable in bed. Encouraged to call with all needs, she verbalized understanding. Call light is within reach, all fall and safety precautions in place, will continue to monitor.
[2017-04-13] VITALS (7 sets, daily range): BP systolic 97–125
--- NOTE | 2017-04-13 00:27 | NUR ---
RN Rounds Patient is sleeping but easily arousable, no acute distress noted. Repositioned with pillow support and made comfortable in bed. Call light is within reach, all fall and safety precautions in place, will continue to monitor.
--- NOTE | 2017-04-13 02:34 | NUR ---
RN Rounds Patient is sleeping, respirations are even and unlabored, no acute distress noted. No non-verbal signs of pain noted at this time. Call light is within reach, all fall and safety precautions in place, will continue to monitor.
--- NOTE | 2017-04-13 04:33 | NUR ---
RN Rounds Patient is sleeping but easily arousable, no acute distress noted. Patient assisted onto bedpan for void, then cleaned and made comfortable in bed with pillow support. Call light is within reach, all fall and safety precautions in place, will continue to monitor.
[2017-04-13] MEDS: INSULIN REGULAR, HUMAN 100 UNITS/ML, 10 ML VIAL (novoLIN R) SUBCUT PRN ×4 (05:52→20:53)
[2017-04-13] MEDS: LEVOTHYROXINE SODIUM 0.1 MG TABLET PO SCH (05:54)
--- NOTE | 2017-04-13 06:52 | NUR ---
Closing Notes Patient is resting quietly in bed, no acute distress noted or complain of pain at this time. Blood sugar was assessed and insulin provided per sliding scale. Patient is stable, all needs met throughout shift. Will continue to monitor until endorsed to AM nurse at bedside.
[2017-04-13] MEDS: HYDROcodone/ACETAMIN 10-325 MG TAB PO PRN ×2 (07:55→17:28)
--- NOTE | 2017-04-13 08:00 | NUR ---
OPENING NOTES, RECEIVED PT IN BED, PT IS ALERT AND ORIENTED X2-3,C/O OF PAIN 10/10 ON R LOWER QUADRANT, PT ON ROOM AIR. VITALS WNL. AFEBRILE. PT STATED PAIN HAS BEEN THERE FOR A LONG TIME. GIVEN PAIN MEDICATION . CALL LIGHT IN EASY REACH, BED IN LOWEST POSITION. WILL CONT TO MONITOR.
[2017-04-13] MEDS: PHENAZOPYRIDINE HCL 100 MG TABLET PO SCH ×2 (09:33→20:48)
[2017-04-13] MEDS: PANTOPRAZOLE SODIUM 40 MG TAB PO SCH (09:34)
[2017-04-13] MEDS: BISACODYL 10 MG/SUPPOSITORY RC SCH (09:34)
[2017-04-13] MEDS: MONTELUKAST 10 MG TABLET PO SCH (09:34)
[2017-04-13] MEDS: DOCUSATE SODIUM 250 MG CAPSULE PO SCH ×2 (09:34→20:45)
[2017-04-13] MEDS: GABAPENTIN 100 MG CAPSULE PO SCH ×3 (09:34→20:48)
[2017-04-13] MEDS: CALCIUM CARBONATE/VITAMIN D3 1 TAB TABLET PO SCH (09:34)
[2017-04-13] MEDS: ALLOPURINOL 300 MG TABLET (ZYLOPRIM) PO SCH (09:34)
--- NOTE | 2017-04-13 10:00 | NUR ---
ROUNDING NOTES, PT IN BED, PT WORKED WITH P.T. PT WAS CHANGED AND CLEANED BY GEOFF MCCLELLAND AFTER WETTING HER BED AND CHUCKS. CALL LIGHT IN REACH, BED IN LOW POSITION. WILL CONT TO MONITOR.
--- NOTE | 2017-04-13 18:40 | NUR ---
CLOSING NOTES, PT REMAINED AA0, KEPT SAFE, PT GIVEN PAIN MEDS REQUESTED. PT GIVEN DAILY DOSE OF STOOL SOFTENER. PT HAD BM SOFT STOOL. PT GOT UP WITH P.T. TODAY. ALL NEEDS MET AND ATTENDED TO. WILL ENDORSE TO NIGHT RN.
--- NOTE | 2017-04-13 19:15 | NUR ---
change of shift.pt.presents stable status.pt.resting.iv access locked.room air o2 stable respiratory status.call light w/in the pt's reach.
--- NOTE | 2017-04-13 20:00 | NUR ---
pt.assessed.v/s assessed;values w/in normal limits.pt.re-positioned.no distress/discomfort manifested. call light w/in the pt's reach.
--- NOTE | 2017-04-13 20:30 | NUR ---
blood glucose assessed;185mg/dl.pt apprised of the value.pt.requested a snack.i have provided the snack. no other requests.call light w/in the pt's reach.
[2017-04-13] MEDS: OXYBUTYNIN CHLORIDE 5 MG TABLET PO SCH (20:48)
[2017-04-13] MEDS: ATORVASTATIN 20 MG TABLET PO SCH (21:00)
--- NOTE | 2017-04-13 21:00 | NUR ---
2100p medications administered;lipitor not available through [facility] medication cabinet;to f/u. i have apprised the pt.of the medications to be administered. have administered levemir;12units. i have administered regular insulin;2 units per the sliding scale.no requests no c/o pain,anusea. call light w/in the pt's reach.
--- NOTE | 2017-04-13 22:00 | NUR ---
pt.assessed.pt.presents quiescent affect;calm asleep.mahnaz;lamar apprised me that the pt.was cleaned/bathed p/t sleeping per the pt's request.no distress/discomfort manifested.lipitor medication resolved utilizing the outside pharmacy.call isma w/in the pt's reach.
[2017-04-14] VITALS (7 sets, daily range): BP systolic 100–130
--- NOTE | 2017-04-14 | NUR ---
pt.assessed.v/s assessed;values w/in normal limits.pt re-positioned.no distress/discomfort articulated. call light placed w/in the pt's reach.
--- NOTE | 2017-04-14 02:00 | NUR ---
pt.assessed.pt.re-positioned.pt.presents quiescent affect;calm,asleep.no distress/discomfort manifested. call light w/in the pt's reach.
--- NOTE | 2017-04-14 04:00 | NUR ---
pt.assessed.v/s assessed:values w/in normal limits.no distress/discomfort articulated per pt. pt.re-positioned.no requests @this hour.call light w/in the pt's reach.
--- NOTE | 2017-04-14 06:00 | NUR ---
pt.assessed.pt.re-positioned.pt.blood glucose assessed;192mg/dl.no requests@this hour.no c/o pain,nausea. call light w/in the pt's reach.
[2017-04-14] MEDS: INSULIN REGULAR, HUMAN 100 UNITS/ML, 10 ML VIAL (novoLIN R) SUBCUT PRN ×5 (07:01→21:16)
[2017-04-14] MEDS: LEVOTHYROXINE SODIUM 0.1 MG TABLET PO SCH (07:02)
--- NOTE | 2017-04-14 08:00 | NUR ---
OPENING NOTES RECEIVED REPORT FROM COLUMNIST/COMMENTATOR NURSE, PT ASLEEP, NO C/O PAIN, CALL LIGHT IN REACH. WILL CONTINUE TO MONITOR.
[2017-04-14] MEDS: BISACODYL 10 MG/SUPPOSITORY RC SCH (09:00)
[2017-04-14] MEDS: GABAPENTIN 100 MG CAPSULE PO SCH ×3 (09:07→20:47)
[2017-04-14] MEDS: ALLOPURINOL 300 MG TABLET (ZYLOPRIM) PO SCH (09:07)
[2017-04-14] MEDS: PHENAZOPYRIDINE HCL 100 MG TABLET PO SCH ×2 (09:07→20:47)
[2017-04-14] MEDS: MONTELUKAST 10 MG TABLET PO SCH (09:08)
[2017-04-14] MEDS: CALCIUM CARBONATE/VITAMIN D3 1 TAB TABLET PO SCH (09:08)
[2017-04-14] MEDS: DOCUSATE SODIUM 250 MG CAPSULE PO SCH ×2 (09:08→20:49)
[2017-04-14] MEDS: PANTOPRAZOLE SODIUM 40 MG TAB PO SCH (09:08)
--- NOTE | 2017-04-14 11:00 | NUR ---
Resumed care RECEIVED REPORT FROM REGISTRY SIGN DESIGNER. CARE WAS ENDORSED.
--- NOTE | 2017-04-14 11:16 | NUR ---
DISCHARGE PLANNING Faxed SNF referral to [phone] for possible discharge back to [facility]. Will follow up. Addendum: 04/14/17 at 1515 by Heena Kelly DP Spoke with Dionisio in admitting at [facility] patient assigned to room 25B RN to report [phone] spoke to Michelle. Bed available anytime. Dionisio will notify patient who is [facility] resident. Any ambulance can be arranged. Placed transportation packet in nurses station. Pending discharge order.
--- NOTE | 2017-04-14 12:15 | NUR ---
BLOOD SUGAR: BLOOD SUGAR IS TAKEN 220MG/DL.WITH 4 UNIT INSULIN COVERAGE.
[2017-04-14] MEDS: HYDROcodone/ACETAMIN 10-325 MG TAB PO PRN ×2 (13:52→20:46)
--- NOTE | 2017-04-14 14:57 | NUR ---
PHYSICAL THERAPY CO-SIGN The Physical Therapy Progress Notes documented by [facility] have been reviewed. Reviewed/Co-Signed by: Antione Coates PT Documentation Done by: ARABELLA HOLLIS PTA PT'S GAIT DISTANCE LIMITED BY PAIN DESPITE BEING PRE-MEDICATED, VC'S PROVIDED. Addendum: 04/14/17 at 1458 by Antione Coates PT Amended: Links added.
--- NOTE | 2017-04-14 14:59 | NUR ---
DC planning: Reviewed case for dc planning--noted pt has +UA and pending urine cx-(collected 04/12/17 after 8pm)-pt not on any abx --Requested nurse Funmi to call PMD Dr. Irwin and f/u for abx and possible dc to SNF-- LANE
--- NOTE | 2017-04-14 16:06 | NUR ---
RN ROUNDS: PT REST WATCHING TV, HAVE GOOD LUNCH.SHE WISH TO GO HOME.
--- NOTE | 2017-04-14 18:54 | NUR ---
RN CLOSING NOTES PATIENT LYING ON BED ALERT ORIENTED.BLOOD SUGAR IS TAKEN 220 MG/DL WITH 4UNITS INSULIN COVERAGE . PATIENT DENIES PAIN OR DISCOMFORT, WAS SERVED DINNER WILL ENDORSE AND SIGN OFF TO NEXT SHIFT.
--- NOTE | 2017-04-14 19:51 | NUR ---
OPENING NOTE Patient and report received from day shift nurses. Patient is AAO x 4 and resting in bed with no complaints of pain or discomfort at this time. Dr. Irwin at nurses station who stated patient will be started on antibiotics and will wait for blood culture results before transferring patient back to SNF. Plan of care discussed; verbalized understanding. Safety and fall precautions are in place. Bed alarm on. Call light on lap. Will continue to monitor.
[2017-04-14] MEDS: OXYBUTYNIN CHLORIDE 5 MG TABLET PO SCH (20:46)
[2017-04-14] MEDS: ATORVASTATIN 20 MG TABLET PO SCH (20:46)
[2017-04-14] MEDS ORDERED: NS IV SCH (21:00)
[2017-04-14] MEDS ORDERED: TOBRAMYCIN SULFATE IV SCH (21:00)
--- NOTE | 2017-04-14 21:12 | NUR ---
BLOOD SUGAR/DUE MEDS Late entry due to patient care. Blood sugar 253; scheduled Levemir 12 units and 6 units of regular insulin was administered as ordered. Due medications administered as ordered. Due IV antibiotic administered as ordered to left forearm 24g. Patient tolerated well. Educated patient regarding medication and potential side effects. Patient verbalized understanding. See EMAR. Encouraged patient to use call light for needs. Call light placed to lap. Bed alarm on. Will continue to monitor.
[2017-04-14] MEDS: TEMAZEPAM 15 MG CAPSULE PO PRN (21:26)
--- NOTE | 2017-04-14 23:00 | NUR ---
TELE BATTERIES Late entry due to patient care. Batteries on tele monitor changed. Patient appears to be resting with no signs or symptoms of acute distress.
[2017-04-15] VITALS (7 sets, daily range): BP systolic 118–144
--- NOTE | 2017-04-15 01:22 | NUR ---
RN ROUNDS Patient is resting quietly in bed with eyes closed. Respirations are even and unlabored with visible chest rise and fall. No signs or symptoms of acute distress. Safety and fall precautions are in place. Bed alarm on. Call light to patient's right hand. Will continue to monitor.
--- NOTE | 2017-04-15 02:00 | NUR ---
RN ROUNDS Late entry due to patient care. Patient appears to be resting. No s/s of acute distress. Safety and fall precautions in place. Call light to lap. Bed alarm on. Will continue to monitor.
--- NOTE | 2017-04-15 04:00 | NUR ---
RN ROUNDS Late entry due to patient care. No s/s of acute distress. Safety and fall precautions in place. Bed alarm on. Call light to right hand. Will continue to monitor.
[2017-04-15] MEDS: LEVOTHYROXINE SODIUM 0.1 MG TABLET PO SCH (06:27)
[2017-04-15 06:46] LABS: BASOPHILS % (AUTO) 0.5 % (0.0-2.0); EOSINOPHILS # (AUTO) 0.4 K/uL (0.0-0.4); HEMATOCRIT 38.9 % (36-48); HEMOGLOBIN 12.6 g/dL (12.0-16.0); LYMPHOCYTES # (AUTO) 1.9 K/uL (1.0-5.5); LYMPHOCYTES % (AUTO) 29.6 % (20.5-51.5); MEAN CORPUSCULAR HEMOGLOBIN 29 pg (27-31); MEAN CORPUSCULAR HGB CONC 33 % (32-36); MEAN CORPUSCULAR VOLUME 90 fL (79.0-98.0); MONOCYTES # (AUTO) 0.7 K/uL (0.0-1.0); MONOCYTES % (AUTO) 10.3 % (1.7-9.3); NEUTROPHILS # (AUTO) 3.3 K/uL (1.8-7.7); NEUTROPHILS % (AUTO) 52.6 % (40.0-70.0); PLATELET COUNT (AUTO) 245 K/uL (130-430); RED CELL DISTRIBUTION WIDTH 14.2 % (9.0-15.0); WHITE BLOOD COUNT (AUTO) 6.3 K/uL (4.8-10.8)
--- NOTE | 2017-04-15 06:59 | NUR ---
CLOSING NOTES Patient is stable. All needs met throughout shift. Bedside report and patient was endorsed to day shift nurse.
[2017-04-15 07:19] LABS: ANION GAP 4 (5-15); CALCIUM 9.4 mg/dL (8.4-11.0); CHLORIDE 103 mmol/L (98-107); CREATININE 1.29 mg/dL (0.55-1.30); GLUCOSE 128 mg/dL (70-99); POTASSIUM 4.5 mmol/L (3.5-5.1); SODIUM SERUM 139 mmol/L (136-145); UREA NITROGEN, BLOOD 33 mg/dL (8-21)
--- NOTE | 2017-04-15 08:00 | NUR ---
AM Initial Notes Pt aaox4 with complaints of abdominal and bilateral leg pains. No distress noted. IV to right forearm #24g saline locked. Pace maker to right chest noted. Incontinent care done. Fall and safety precautions enforced with bed alarm armed. Refused to have bilateral scd worn. Encouraged to call for assistance. Call light within reach. Will monitor.
[2017-04-15] MEDS: BISACODYL 10 MG/SUPPOSITORY RC SCH (09:00)
[2017-04-15] MEDS: GABAPENTIN 100 MG CAPSULE PO SCH ×2 (09:18→15:53)
[2017-04-15] MEDS: PHENAZOPYRIDINE HCL 100 MG TABLET PO SCH (09:18)
[2017-04-15] MEDS: PANTOPRAZOLE SODIUM 40 MG TAB PO SCH (09:18)
[2017-04-15] MEDS: DOCUSATE SODIUM 250 MG CAPSULE PO SCH (09:18)
[2017-04-15] MEDS: CALCIUM CARBONATE/VITAMIN D3 1 TAB TABLET PO SCH (09:19)
[2017-04-15] MEDS: ALLOPURINOL 300 MG TABLET (ZYLOPRIM) PO SCH (09:19)
[2017-04-15] MEDS: MONTELUKAST 10 MG TABLET PO SCH (09:19)
[2017-04-15] MEDS: HYDROcodone/ACETAMIN 10-325 MG TAB PO PRN (09:20)
--- NOTE | 2017-04-15 10:47 | NUR ---
DISCHARGE PLANNING Patient assigned to room [facility]B at [facility] RN to report [phone] bed available anytime. Patient made aware. called [facility] [phone] spoke with Shane mcintyre [facility] transport on will call. Pending discharge order.
--- NOTE | 2017-04-15 11:00 | NUR ---
Rounds Pt asleep. No signs of facial grimacing for pain for discomfort. No distress noted. Will monitor.
--- NOTE | 2017-04-15 11:02 | NUR ---
DC planning: S/W son Anthony Marte on phone at [phone] regarding dc planning back to [facility]--pt will require IV abx for UTI and PT at SNF--Anthony offered choices for SNF and IM Medicare letter--He is agreeable to discharge and transfer to [facility] when the MD orders dc and to ambulance transport--Pt is confused at times, unsteady gait and will have IV lock. INDY SHERMAN
[2017-04-15] MEDS: INSULIN REGULAR, HUMAN 100 UNITS/ML, 10 ML VIAL (novoLIN R) SUBCUT PRN ×2 (12:20→17:59)
--- NOTE | 2017-04-15 14:33 | NUR ---
Rounds Pt awake resting in bed with no complaints of pain or discomfort at this time. No distress noted. Incontinent care done. Repositioned and kept comfortable. Encouraged to call for assistance. Call light within reach. Will monitor.
--- NOTE | 2017-04-15 14:50 | NUR ---
PHYSICAL THERAPY CO-SIGN The Physical Therapy Progress Notes documented by Med Dir have been reviewed. I CONCUR W/STUMP BLOWER NOTE; CONT PER TX PLAN Reviewed/Co-Signed by: Paulette Kee PT Documentation Done by: ARABELLA HOLLIS STUMP BLOWER Addendum: 04/15/17 at 1451 by Paulette Kee PT Amended: Links added.
--- NOTE | 2017-04-15 17:12 | NUR ---
ARRANGED WITH [facility] TO TAKE PATIENT BACK TO [facility] 25[facility]. SPOKE TO HOMERO. COMSEC MANAGER TIME IS 1929
--- NOTE | 2017-04-15 17:30 | NUR ---
Rounds Pt awake resting in bed with no significant changes noted. No complaints of pain or discomfort. Repositioned and kept comfortable. Encouraged to call for assistance. Call light within reach. Will monitor.
--- NOTE | 2017-04-15 18:45 | NUR ---
[facility] Report called to [facility] @ and spoke with L[facility]. Patient will be going to room 25-B.
--- NOTE | 2017-04-15 19:00 | NUR ---
Closing notes Pt awake resting in bed. No significant changes noted. Kept comfortable. Pt will be going back to [facility]. Will endorse care to incoming nurse.
--- NOTE | 2017-04-15 19:45 | NUR ---
PM SHIFT ASSESSMENT Received patient lying in bed, aox3, vital signs stable. Denies any pain or discomfort at this time. Patient will be transferred to [facility] this evening, awaiting ambulance, all paper works signed. All belongings accounted for. Oriented to use call light for nurse assistance, call light within reach, safety measures in place, will monitor.
--- NOTE | 2017-04-15 20:58 | NUR ---
DISCHARGE Patient awake and vitals stable upon transfer. IV line to right forearm intact and patent, DC paperwork given to medic personnel. All belongings left with patient.
[2017-04-16] MEDS ORDERED: NS IV SCH (21:00)
[2017-04-16] MEDS ORDERED: TOBRAMYCIN SULFATE IV SCH (21:00)
== END 2017-04-15 20:35 | DRG 206 ==
LOC: SED 18:16 → STU 23:10
PROVIDERS: ADMIT Internal Medicine; ATTEND Internal Medicine
DX: M94.0 Chondrocostal junction syndrome [Tietze] (principal); N39.0 Urinary tract infection, site not specified; I10 Essential (primary) hypertension; E03.9 Hypothyroidism, unspecified; E11.9 Type 2 diabetes mellitus without complications; I49.5 Sick sinus syndrome; J44.9 Chronic obstructive pulmonary disease, unspecified; Z95.0 Presence of cardiac pacemaker; Z85.3 Personal history of malignant neoplasm of breast; Z90.12 Acquired absence of left breast and nipple; Z79.4 Long term (current) use of insulin; Z79.899 Other long term (current) drug therapy; Z88.0 Allergy status to penicillin; Z88.8 Allergy status to other drugs, medicaments and biological substances; Z88.6 Allergy status to analgesic agent; Z88.1 Allergy status to other antibiotic agents; Z91.011 Allergy to milk products; I25.2 Old myocardial infarction; Z90.710 Acquired absence of both cervix and uterus
CPT/HCPCS: 36415; 71010; 80048; 80200; 81000-TC; 82550-TC; 82962; 83605; 83880; 84484; 85025; 85379; 87040-TC; 87081; 87086; 87186-TC; 93005; 96374; 97110-GP; 97116-GP; 97530-GP; 99285; J1815; J2270; J3260; J7050

== ENCOUNTER 2017-04-29 18:34 | Observation (INO) | payer OTHER, MEDICAID ==
[~2017-04-29] VITALS: Ht 157.5 cm; Wt 97.1 kg
[2017-04-29 18:34] VITALS: BP_SYST 149
[~2017-04-29 18:34] MED LIST changes: +ATOR40TA68
[2017-04-29] MEDS ORDERED: CEFAZOLIN 1 GM IVPB PREMIX 50 ML IV ONE (20:15)
[2017-04-29 20:22] LABS: BASOPHILS # (AUTO) 0.1 K/uL (0.0-0.2); BASOPHILS % (AUTO) 0.8 % (0.0-2.0); EOSINOPHILS # (AUTO) 0.5 K/uL (0.0-0.4); EOSINOPHILS % (AUTO) 6.2 % (0.0-4.0); HEMOGLOBIN 12.4 g/dL (12.0-16.0); LYMPHOCYTES % (AUTO) 27.5 % (20.5-51.5); MEAN CORPUSCULAR HEMOGLOBIN 30 pg (27-31); MEAN CORPUSCULAR HGB CONC 33 % (32-36); MEAN CORPUSCULAR VOLUME 91 fL (79.0-98.0); MONOCYTES # (AUTO) 0.6 K/uL (0.0-1.0); MONOCYTES % (AUTO) 8.3 % (1.7-9.3); NEUTROPHILS # (AUTO) 4.1 K/uL (1.8-7.7); NEUTROPHILS % (AUTO) 57.2 % (40.0-70.0); PLATELET COUNT (AUTO) 221 K/uL (130-430); RED BLOOD CELL COUNT(AUTO) 4.19 MIL/uL (4.2-6.2); RED CELL DISTRIBUTION WIDTH 14.4 % (9.0-15.0); WHITE BLOOD COUNT (AUTO) 7.3 K/uL (4.8-10.8)
[2017-04-29 20:23] LABS: ANION GAP 5 (5-15); CALCIUM 9.2 mg/dL (8.4-11.0); CHLORIDE 104 mmol/L (98-107); CREATININE 1.44 mg/dL (0.55-1.30); GLUCOSE 284 mg/dL (70-99); POTASSIUM 4.7 mmol/L (3.5-5.1); SODIUM SERUM 133 mmol/L (136-145); UREA NITROGEN, BLOOD 27 mg/dL (8-21)
[2017-04-29 20:28] LABS: ALANINE AMINOTRANSFERASE 13 U/L (12-78); ALBUMIN 2.9 g/dL (3.4-4.8); ASPARTATE AMINOTRANSFERASE 19 U/L (10-37); TOTAL BILIRUBIN 0.2 mg/dL (0.0-1.0); TOTAL PROTEIN, SERUM 7.1 g/dL (6.4-8.3)
[2017-04-29 21:15] LABS: BILIRUBIN,URINE NEGATIVE (NEGATIVE); BLOOD, URINE NEGATIVE (NEGATIVE); CLARITY/URINE CLEAR (CLEAR); COLOR,URINE ORANGE (YELLOW); GLUCOSE,URINE TRACE (NEGATIVE); KETONES,URINE NEGATIVE (NEGATIVE); PROTEIN URINE TRACE (NEGATIVE)
[2017-04-29 21:29] LABS: LEUKOCYTE ESTERASE ,URINE NEGATIVE (NEGATIVE); NITRITE, URINE NEGATIVE (NEGATIVE)
[2017-04-29 21:30] LABS: BACTERIA,URINE FEW /HPF (None Seen); MUCUS,URINE None Seen /LPF (None Seen); RBC,URINE NONE SEEN /HPF (0-3); WBC,URINE 0-3 /HPF (0-3)
[2017-04-29] MEDS ORDERED: MORPHINE 4 MG/ML INJ. SYRINGE IVP ONE (21:30)
[2017-04-29 22:02] VITALS: BP_SYST 127
[2017-04-29 22:05] VITALS: BP_SYST 127
[2017-04-29 23:47] VITALS: BP_SYST 128
[2017-04-30] MEDS ORDERED: NA PHOS,M-B/NA PHOS,DI-BA 118 ML (FLEET ENEMA) RC PRN (01:00)
[2017-04-30] MEDS ORDERED: IBUPROFEN 800 MG TABLET PO PRN (01:00)
[2017-04-30] MEDS ORDERED: POLYETHYLENE GLYCOL 3350, 17 GM/ POWD.PACK PO PRN (01:00)
[2017-04-30] MEDS ORDERED: ACETAMINOPHEN 325 MG TABLET PO PRN (01:00)
[2017-04-30] MEDS ORDERED: MILK OF MAGNESIA 30 ML UDC PO PRN (01:00)
[2017-04-30] MEDS ORDERED: TEMAZEPAM 15 MG CAPSULE PO PRN (01:00)
[2017-04-30] MEDS ORDERED: NITROGLYCERIN 0.4 MG TAB.SUBL SL PRN (01:15)
[2017-04-30] MEDS: HYDROcodone/ACETAMIN 10-325 MG TAB PO PRN ×2 (01:27→17:26)
[2017-04-30] MEDS: INSULIN REGULAR, HUMAN 100 UNITS/ML, 10 ML VIAL (novoLIN R) SUBCUT PRN ×4 (06:20→20:50)
[2017-04-30 08:12] VITALS: BP_SYST 142
[2017-04-30] MEDS: PANTOPRAZOLE SODIUM 40 MG TAB PO SCH (08:58)
[2017-04-30] MEDS: CALCIUM CARBONATE/VITAMIN D3 1 TAB TABLET PO SCH (08:58)
[2017-04-30] MEDS: ALLOPURINOL 300 MG TABLET (ZYLOPRIM) PO SCH (08:58)
[2017-04-30] MEDS: GABAPENTIN 100 MG CAPSULE PO SCH ×3 (08:58→20:45)
[2017-04-30] MEDS: MONTELUKAST 10 MG TABLET PO SCH (08:58)
[2017-04-30] MEDS: DOCUSATE SODIUM 250 MG CAPSULE PO SCH ×2 (08:59→20:45)
[2017-04-30] MEDS: BISACODYL 10 MG/SUPPOSITORY RC SCH (08:59)
[2017-04-30] MEDS ORDERED: ATORVASTATIN 20 MG TABLET PO SCH ×2 (09:00→21:00)
[2017-04-30] MEDS: LEVOTHYROXINE SODIUM 0.1 MG TABLET PO SCH (09:56)
[2017-04-30 12:11] VITALS: BP_SYST 113
[2017-04-30 16:45] VITALS: BP_SYST 115
[2017-04-30] MEDS ORDERED: OXYBUTYNIN CHLORIDE 5 MG TABLET PO SCH (21:00)
[2017-04-30 23:53] VITALS: BP_SYST 121
[2017-05-01 03:24] VITALS: BP_SYST 136
[2017-05-01] MEDS: INSULIN REGULAR, HUMAN 100 UNITS/ML, 10 ML VIAL (novoLIN R) SUBCUT PRN ×3 (06:15→17:19)
[2017-05-01 06:22] LABS: BASOPHILS % (AUTO) 0.6 % (0.0-2.0); EOSINOPHILS # (AUTO) 0.5 K/uL (0.0-0.4); EOSINOPHILS % (AUTO) 8.2 % (0.0-4.0); HEMATOCRIT 36.7 % (36-48); HEMOGLOBIN 12.1 g/dL (12.0-16.0); LYMPHOCYTES # (AUTO) 1.5 K/uL (1.0-5.5); LYMPHOCYTES % (AUTO) 24.6 % (20.5-51.5); MEAN CORPUSCULAR HEMOGLOBIN 30 pg (27-31); MEAN CORPUSCULAR HGB CONC 33 % (32-36); MEAN CORPUSCULAR VOLUME 90 fL (79.0-98.0); MONOCYTES # (AUTO) 0.5 K/uL (0.0-1.0); MONOCYTES % (AUTO) 7.4 % (1.7-9.3); NEUTROPHILS # (AUTO) 3.7 K/uL (1.8-7.7); NEUTROPHILS % (AUTO) 59.2 % (40.0-70.0); PLATELET COUNT (AUTO) 212 K/uL (130-430); RED BLOOD CELL COUNT(AUTO) 4.07 MIL/uL (4.2-6.2); RED CELL DISTRIBUTION WIDTH 14.5 % (9.0-15.0); WHITE BLOOD COUNT (AUTO) 6.2 K/uL (4.8-10.8)
[2017-05-01 06:28] LABS: ANION GAP 7 (5-15); CALCIUM 9.3 mg/dL (8.4-11.0); CHLORIDE 105 mmol/L (98-107); CREATININE 1.45 mg/dL (0.55-1.30); GLUCOSE 187 mg/dL (70-99); POTASSIUM 4.9 mmol/L (3.5-5.1); SODIUM SERUM 140 mmol/L (136-145); UREA NITROGEN, BLOOD 29 mg/dL (8-21)
[2017-05-01 08:24] VITALS: BP_SYST 121
[2017-05-01] MEDS: BISACODYL 10 MG/SUPPOSITORY RC SCH (09:00)
[2017-05-01] MEDS: DOCUSATE SODIUM 250 MG CAPSULE PO SCH (09:03)
[2017-05-01] MEDS: MONTELUKAST 10 MG TABLET PO SCH (09:03)
[2017-05-01] MEDS: PANTOPRAZOLE SODIUM 40 MG TAB PO SCH (09:03)
[2017-05-01] MEDS: GABAPENTIN 100 MG CAPSULE PO SCH ×2 (09:03→15:20)
[2017-05-01] MEDS: CALCIUM CARBONATE/VITAMIN D3 1 TAB TABLET PO SCH (09:03)
[2017-05-01] MEDS: HYDROcodone/ACETAMIN 10-325 MG TAB PO PRN (09:03)
[2017-05-01] MEDS: ALLOPURINOL 300 MG TABLET (ZYLOPRIM) PO SCH (09:03)
[2017-05-01] MEDS: LEVOTHYROXINE SODIUM 0.1 MG TABLET PO SCH (09:03)
[2017-05-01 11:35] VITALS: BP_SYST 113
[2017-05-01 15:29] VITALS: BP_SYST 106
[2017-05-01 18:34] VITALS: BP_SYST 106
== END 2017-05-01 19:48 ==
LOC: SED 18:34 → SMU 21:18 → STU 22:00
PROVIDERS: ADMIT Family Medicine; ATTEND Family Medicine
DX: R07.9 Chest pain, unspecified (principal); M94.0 Chondrocostal junction syndrome [Tietze]; I10 Essential (primary) hypertension; E11.9 Type 2 diabetes mellitus without complications; I25.10 Atherosclerotic heart disease of native coronary artery without angina pectoris; R68.83 Chills (without fever); I89.0 Lymphedema, not elsewhere classified; Z90.10 Acquired absence of unspecified breast and nipple; Z85.3 Personal history of malignant neoplasm of breast; Z95.0 Presence of cardiac pacemaker
CPT/HCPCS: 36415 ×2; 71010; 80048; 80053; 81000; 82550; 82962 ×2; 84484; 85025 ×2; 87040 ×2; 87081; 93005; 96361; 96374; 99285; G0378 ×3; J0690; J1815; J2270; 96365; 96372; 96375